=== PATIENT | female | born 1980 | race American Indian/Alaskan Native ===

== ENCOUNTER 2022-05-19 12:55 | Emergency (ER) | payer MEDICAID ==
[2022-05-19 13:46] VITALS: BP 106/42
[2022-05-19] MEDS ORDERED: HYDROcodone/ACETAMINOPHEN 5-325 MG TAB PO ONE (15:23)
[2022-05-19] MEDS ORDERED: KETOROLAC 10 MG TAB PO ONE (15:23)
[2022-05-19] MEDS ORDERED: LIDOCAINE (1%) 10 MG/1 ML VIAL 20 ML MDV INFILTRATI ONE (15:23)
--- NOTE | 2022-05-19 15:30 | Emergency Department Report ---
- General Chief complaint: Skin/Abscess/Foreign Body Stated complaint: RISE ON R NIPPLE Time Seen by Provider: 05/19/22 15:23 Source: patient Mode of arrival: Ambulatory Limitations: No Limitations - History of Present Illness Initial comments: 41-year-old female with history of asthma presents to the emergency department with abscess in the right breast. Patient reports initially started as a bump and has progressively gotten worse around her nipple, describes worsening pain, unable to wear her bra including. She denies prior history of abscesses in her breast, she denies breast-feeding, she denies being stung by any insect, she denies fever chills nausea vomiting. Pain is worsened with touch clothing movement. Patient has not used anything at home, complaint: abscess/boil -: Gradual, week(s) Tetanus Up to Date: no Location: chest Severity: moderate Severity scale (0 -10): 10 Quality: sharp, constant Improves with: none Worsens with: palpation, movement Context: none Associated symptoms: malaise Treatments Prior to Arrival: none - Related Data Previous Rx's Medication Instructions Recorded Last Taken Type Acetaminophen/Codeine [Tylenol 1 tab PO Q6H PRN #12 tab 05/19/22 Unknown Rx /Codeine # 3 tab] Ibuprofen [Motrin 800 MG tab] 800 mg PO Q8HR PRN #30 tablet 05/19/22 Unknown Rx Sulfamethoxazole/Trimethoprim 1 each PO BID 10 Days #20 05/19/22 Unknown Rx [Bactrim DS TAB] Allergies Allergy/AdvReac Type Severity Reaction Status Date / Time No Known Allergies Allergy Verified 05/19/22 13:46 Abscess Boil HPI - HPI Chief Complaint: Skin/Abscess/Foreign Body Stated Complaint: RISE ON R NIPPLE Time Seen by Provider: 05/19/22 15:23 Home Medications: Previous Rx's Medication Instructions Recorded Last Taken Type Acetaminophen/Codeine [Tylenol 1 tab PO Q6H PRN #12 tab 05/19/22 Unknown Rx /Codeine # 3 tab] Ibuprofen [Motrin 800 MG tab] 800 mg PO Q8HR PRN #30 tablet 05/19/22 Unknown Rx Sulfamethoxazole/Trimethoprim 1 each PO BID 10 Days #20 05/19/22 Unknown Rx [Bactrim DS TAB] Allergies/Adverse Reactions: Allergies Allergy/AdvReac Type Severity Reaction Status Date / Time No Known Allergies Allergy Verified 05/19/22 13:46 ED Review of Systems ROS: Stated complaint: RISE ON R NIPPLE Other details as noted in HPI Constitutional: malaise. denies: fever, weakness Respiratory: denies: cough Endocrine: denies: excessive sweating, flushing, intolerance to cold, intolerance to heat Gastrointestinal: denies: abdominal pain, nausea Musculoskeletal: denies: back pain, joint swelling Skin: rash, lesions, change in color Neurological: denies: headache, weakness Psychiatric: denies: homicidal thoughts, suicidal thoughts Hematological/Lymphatic: denies: easy bruising, swollen glands ED Past Medical Hx - Medications Home Medications: Home Medications Medication Instructions Recorded Confirmed Last Taken Type Acetaminophen/Codeine [Tylenol 1 tab PO Q6H PRN #12 tab 05/19/22 Unknown Rx /Codeine # 3 tab] Ibuprofen [Motrin 800 MG tab] 800 mg PO Q8HR PRN #30 tablet 05/19/22 Unknown Rx Sulfamethoxazole/Trimethoprim 1 each PO BID 10 Days #20 05/19/22 Unknown Rx [Bactrim DS TAB] ED Physical Exam - General Limitations: No Limitations General appearance: alert, in no apparent distress - Head Head exam: Present: atraumatic - Eye Eye exam: Present: normal appearance - ENT ENT exam: Present: normal exam, normal orophraynx - Respiratory Respiratory exam: Present: normal lung sounds bilaterally. Absent: respiratory distress - Cardiovascular Cardiovascular Exam: Present: regular rate, normal rhythm - GI/Abdominal GI/Abdominal exam: Present: soft. Absent: distended, tenderness - Extremities Exam Extremities exam: Present: normal inspection, full ROM - Back Exam Back exam: Present: normal inspection, full ROM - Neurological Exam Neurological exam: Present: alert, oriented X3 - Psychiatric Psychiatric exam: Present: normal affect, normal mood - Skin Skin exam: Present: erythema, other (Swelling erythema induration fluctuance on her right nipple) ED Course Vital Signs 05/19/22 13:39 Temperature 97.9 F Pulse Rate 62 Respiratory 16 Rate Blood Pressure 106/42 [Right] O2 Sat by Pulse 100 Oximetry - Procedure Description Procedures done: Consent obtained from patient for incision and drainage, she understands the risk involved including bleeding, nerve damage. areaolla Area anesthetized with lidocaine, 11 blade scalpel, mod amount of purulent serous drainage expressed, no indication for packing at this time. Patient tolerated procedure well ED Medical Decision Making - Medical Decision Making 41-year-old female with history of asthma presents to the emergency department with abscess in the right breast. Patient reports initially started as a bump and has progressively gotten worse around her nipple, describes worsening pain, unable to wear her bra including. She denies prior history of abscesses in her breast, she denies breast-feeding, she denies being stung by any insect, she denies fever chills nausea vomiting. Pain is worsened with touch clothing movement. Patient has not used anything at home, No indication of any systemic infection, vital signs stable, area I&D performed, cultures collected, antibiotics, warm compress, pain management with outpatient follow-up Critical care attestation.: If time is entered above; I have spent that time in minutes in the direct care of this critically ill patient, excluding procedure time. ED Disposition Clinical Impression: Cellulitis of breast, Acute abscess of areola Disposition: HOME / SELF CARE / HOMELESS Is pt being admited?: No Does the pt Need Aspirin: No Condition: Stable Instructions: Skin Abscess, Cellulitis, Adult Prescriptions: Sulfamethoxazole/Trimethoprim [Bactrim DS TAB] 1 each PO BID 10 Days #20 Ibuprofen [Motrin 800 MG tab] 800 mg PO Q8HR PRN #30 tablet PRN Reason: Pain , Severe (7-10) Acetaminophen/Codeine [Tylenol /Codeine # 3 tab] 1 tab PO Q6H PRN #12 tab PRN Reason: Pain , Severe (7-10)
== END 2022-05-19 18:55 | disposition home or self-care (01) ==
LOC: ED 12:55
DX: N61.1 Abscess of the breast and nipple (principal); N61.0 Mastitis without abscess
CPT/HCPCS: 99282